=== PATIENT | male | born 1945 | race Caucasian/White ===

== ENCOUNTER 2021-07-07 02:53 | Emergency (ER) | payer MEDICARE ==
[~2021-07-07 02:53] MED LIST: ASPIRIN EC81 MG PO; ASPIRIN325 MG PO; BENTYL10 MG PO; CARTIA XT120 MG PO; CELEXA20 MG PO; LIPITOR40 MG PO; METFORMIN HCL500 MG PO; NORVASC2.5 MG PO; PROTONIX 40MG T40 MG PO; RISPERDAL 0.5M0.5 MG PO; TOPROL XL 25MG25 MG PO; ZOFRAN4 MG PO
[2021-07-07 03:29] LABS: BASOPHIL 0.4 % (0-2); EOSINOPHIL 0.7 % (0-7); HCT 38.4 % (42.0-52.0); HGB 12.6 g/dl (13.2-18.0); LYMPHOCYTE 11.4 % (15-48); MCH 30.1 pg (25.0-31.0); MCHC 32.8 g/dL (32.0-36.0); MCV 91.9 fL (78.0-100.0); MONOCYTE 8.6 % (0-12); MPV 9.9 fL (6.0-9.5); NEUTROPHIL 78.5 % (41-80); NRBC 0; PLT 203 K/uL (150-400); RBC 4.18 M/uL (4.70-6.00); RDW 13.2 % (11.5-14.0); WBC 11.9 K/uL (4.0-10.5)
[2021-07-07 03:35] LABS: INR 1.05 (0.9-1.2); PROTHROMBIN TIME 13.1 SECONDS (11.8-13.4)
[2021-07-07 03:43] LABS: ALBUMIN 3.5 g/dL (3.4-5.0); ALKALINE PHOSHATASE 73 U/L (46-116); ALT 21 U/L (16-63); AST 13 U/L (15-37); BUN 21 mg/dL (7-18); BUN/CREAT RATIO (CALC) 17.4 RATIO; CHLORIDE 104 mmol/L (98-107); CO2 (BICARBONATE) 25 mmol/L (21-32); CREATININE 1.21 mg/dL (0.67-1.17); GLOBULIN (CALCULATION) 3.6 g/dL; GLUCOSE 223 mg/dL (74-106); LIPASE 158 U/L (73-393); MAGNESIUM 1.8 mg/dL (1.8-2.4); POTASSIUM 3.8 mmol/L (3.5-5.1); TOTAL PROTEIN 7.1 g/dL (6.4-8.2)
[2021-07-07 03:49] LABS: PRO-BNP 103 pg/mL (<450)
== END 2021-07-07 06:00 | disposition home or self-care (01) ==
LOC: FER 02:53
PROVIDERS: Emergency Medicine
DX: N13.2 Hydronephrosis with renal and ureteral calculous obstruction (principal); E10.9 Type 1 diabetes mellitus without complications; Z88.6 Allergy status to analgesic agent; Z20.822 Contact with and (suspected) exposure to COVID-19
CPT/HCPCS: 36415; 71045; 80053; 83690; 83735; 83880; 84145; 84484; 85025; 85610; 85730; 93005; G0480; J1170; J2405; J7030; Q9967; U0002

== ENCOUNTER → 2021-11-27 | Day surgery (SDC) | payer MEDICARE ==
[~2021-11-27] VITALS: Ht 198.1 cm; Wt 93.0 kg
[~2021-11-27] MED LIST changes: +COLESTID 1GM TAB1 GM PO; +COQ1050 MG PO; +JANUVIA50 MG PO; +VIT D PO; +ZOLOFT50 MG PO
[2021-11-27 08:18] LABS: HGB 12.4 g/dl (13.2-18.0); MCH 29.6 pg (25.0-31.0); MCHC 32.6 g/dL (32.0-36.0); MCV 90.7 fL (78.0-100.0); MPV 9.6 fL (6.0-9.5); RBC 4.19 M/uL (4.70-6.00); RDW 13.2 % (11.5-14.0); WBC 8.3 K/uL (4.0-10.5)
[2021-11-27 08:47] LABS: ALBUMIN 3.5 g/dL (3.4-5.0); BILIRUBIN - TOTAL 0.7 mg/dL (0.2-1.0); CREATININE 1.15 mg/dL (0.67-1.17); GLOBULIN (CALCULATION) 3.3 g/dL; POTASSIUM 3.8 mmol/L (3.5-5.1); TOTAL PROTEIN 6.8 g/dL (6.4-8.2)
== END | disposition home or self-care (01) ==
LOC: FAS 07:26
PROVIDERS: Surgery
DX: K29.50 Unspecified chronic gastritis without bleeding (principal); K21.9 Gastro-esophageal reflux disease without esophagitis; Z95.5 Presence of coronary angioplasty implant and graft; Z79.82 Long term (current) use of aspirin; Z88.6 Allergy status to analgesic agent; Z87.891 Personal history of nicotine dependence
CPT/HCPCS: 36415; 80053; J2704; J7120